=== PATIENT | female | born 1950 | race African-American/Black ===

== ENCOUNTER 2018-03-12 07:15 | Day surgery (SDC) | payer MEDICARE ==
[~2018-03-12] VITALS: Ht 162.6 cm; Wt 129.3 kg
[~2018-03-12 07:15] MED LIST: ADLT ASA LOW81 MG PO; ADVAIR HF1 IN; AMOXICILLIN500 M2 PO; ASP OR; AUGMENTIN500TAB PO; AZATHIOPRINE50 MG PO; BABY ASPIRIN81 MG OR; CALCIUM600 M1 OR; DIOVAN HCT OR; FUROSEMIDE40 MG PO; HYDRALAZINE25 MG PO; KLOR-CON 1010 MEQ OR; KLOR-CON 1010 MEQ PO; LASIX80 MG PO; LORTAB 5 OR; MEDDOSEPAK PO; MEDROL4 M1 OR; METOPROL TAR100 MG PO; METOPROLOL50 MG OR; METOPROLOL50 MG PO; OXYBUTYNIN5 MG PO; PREDNISONE10 MG PO; PREDNISONE20 MG OR; PREDNISONE5 MG PO; PRILOSEC20 MG PO; PRILOSEC20 MG/CAP PO; PROAIR HFA IN; PROTONIX40 M2 PO; ROBITUSSIN AC10 ML PO; SG ASA LOW81 M1 PO; SMZ-TMP DS1 TAB PO; TOPROL XL PO; VENTOLIN HFA IN; ZPAK PO; ZYRTEC-D AL1 PO; ZYRTEC-D ALG OR; ZYRTEC10 MG PO
[2018-03-12 10:24] VITALS: BP 139/67
== END 2018-03-12 10:30 | disposition home or self-care (01) ==
LOC: ENDO 07:15
PROVIDERS: ATTEND Internal Medicine Gastroenterology
PROC: 0DBN8ZX Excision of Sigmoid Colon, Via Natural or Artificial Opening Endoscopic, Diagnostic (ICD-10-PCS; principal; 2018-03-12)
PROC: 0DBL8ZX Excision of Transverse Colon, Via Natural or Artificial Opening Endoscopic, Diagnostic (ICD-10-PCS; 2018-03-12)
DX: Z12.11 Encounter for screening for malignant neoplasm of colon (principal); D12.5 Benign neoplasm of sigmoid colon; D12.3 Benign neoplasm of transverse colon; K64.4 Residual hemorrhoidal skin tags; K57.30 Diverticulosis of large intestine without perforation or abscess without bleeding; K64.8 Other hemorrhoids; I10 Essential (primary) hypertension; I48.91 Unspecified atrial fibrillation; Z86.010 Personal history of colon polyps

== ENCOUNTER → 2019-01-01 | Outpatient (REF) | payer MEDICARE ==
[2019-01-01 09:32] LABS: ALBUMIN 3.8 g/dL (3.2-5.0); ALKALINE PHOSPHATASE 117 u/l (38-126); ANION GAP 14 (6-22 (CALC)); BILIRUBIN, TOTAL 0.7 mg/dL (0.0-1.4); BUN 13 mg/dL (8-23); BUN/CREATININE RATIO 18 (12-20 (CALC)); CARBON DIOXIDE 25 mmol/l (22-30); CHLORIDE 106 mmol/l (95-108); CREATININE 0.7 mg/dL (0.5-1.0); GFR > 60 ML/MIN (>=60 (CALC)); GFR FOR AFR.AMER. > 60 ML/MIN (>=60 (CALC)); POTASSIUM 3.8 mmol/l (3.5-5.1); SGOT/AST 15 u/l (9-36); SODIUM 141 mmol/l (137-146); TOTAL PROTEIN 6.9 g/dL (6.3-8.2)
== END | disposition home or self-care (01) ==
LOC: LAB 08:41
PROVIDERS: ATTEND Internal Medicine Geriatric Medicine
DX: I10 Essential (primary) hypertension (principal)

== ENCOUNTER 2020-10-16 12:18 | Inpatient (IN) | payer MEDICARE ==
[2020-10-16] VITALS (14 sets, daily range): BP systolic 157–207; BP diastolic 67–83
[~2020-10-16] VITALS: Ht 160 cm; Wt 142.0 kg
[~2020-10-16 12:18] MED LIST changes: +HYDRALAZINE10 MG PO
--- NOTE | 2020-10-16 12:18 | NUR ---
PT TO ROOM 9 VIA WHEELCHAIR FOR BEDSIDE TRIAGE
--- NOTE | 2020-10-16 12:20 | NUR ---
PT REPORTS BEING AT HER PCP OFFICE TODAY AND SUDDENLY BECAME SOB. WAS GIVEN 3 NEB TX AT PCP OFFICE WITH MINIMAL RELIEF.
[2020-10-16] MEDS ORDERED: IPRATROPIUM BR0.02 % IN (12:48)
[2020-10-16] MEDS ORDERED: ALBUTEROL SUL0.083 % IN (12:48)
[2020-10-16] MEDS ORDERED: PROAIR HFA IN (12:50)
[2020-10-16] MEDS ORDERED: MULTIVITAMIN PO (12:50)
[2020-10-16 13:02] LABS: HEMATOCRIT 37.9 % (37.0-47.0); HEMOGLOBIN 11.4 g/dl (12.0-16.0); IMMATURE GRANULOCYTES 0.8 % (0.0-5.0); MEAN CORPUSCULAR HGB 28.3 pG CALC (26.0-32.0); MEAN CORPUSCULAR HGB CONC 30.1 g/dL CAL (32.0-36.0); NEUT# 8.06 thou/uL (2.00-7.15); RED BLOOD COUNT 4.03 mill/uL (4.20-5.60)
--- NOTE | 2020-10-16 13:33 | NUR ---
PT MEDICATED PER JAN ORDER. TOLERATED ADMINISTRATION WELL. ADVISED OF CONT CARDIAC AND BP MONITORING. VERBALIZED UNDERSTANDING. CALL LIGHT GIVEN. SISTER BEDSIDE.
[2020-10-16 13:58] LABS: ALBUMIN 3.8 g/dL (3.2-5.0); ALKALINE PHOSPHATASE 172 u/l (38-126); ANION GAP 15 (6-22 (CALC)); BILIRUBIN, TOTAL 0.7 mg/dL (0.0-1.4); BUN 15 mg/dL (8-23); BUN/CREATININE RATIO 23 (12-20 (CALC)); CARBON DIOXIDE 26 mmol/l (22-30); CHLORIDE 105 mmol/l (95-108); CREATININE 0.7 mg/dL (0.5-1.0); GFR > 60 ML/MIN (>=60 (CALC)); GFR FOR AFR.AMER. > 60 ML/MIN (>=60 (CALC)); POTASSIUM 3.6 mmol/l (3.5-5.1); SGOT/AST 20 u/l (9-36); SODIUM 142 mmol/l (137-146); TOTAL PROTEIN 7.3 g/dL (6.3-8.2)
[2020-10-16 14:00] LABS: ACT PARTIAL THROMBO TIME 23.6 SECONDS (20.0-32.5); PROTHROMBIN TIME 9.7 SECONDS (9.0-12.5)
--- NOTE | 2020-10-16 14:03 | NUR ---
PT MEDICATED WITH HYDRALAZINE IVP BY LAMAR RATLIFF. PT REPORTS NO NEEDS. CALL LIGHT WITHIN REACH.
--- NOTE | 2020-10-16 15:00 | NUR ---
PT RESTING ON STRETCHER. RESP EVEN AND UNLABORED. SKIN WARM AND DRY. VERBALIZES NO NEEDS AT THIS TIME. CALL LIGHT WITHIN REACH. SAS SQL DEVELOPER IN PLACE
[2020-10-16 15:43] LABS: URINE BILIRUBIN - DIPSTICK NEGATIVE (NEGATIVE); URINE BLOOD DIPSTICK SMALL (NEGATIVE); URINE COLOR YELLOW; URINE GLUCOSE - DIPSTICK NEGATIVE (NEGATIVE); URINE KETONE NEGATIVE (NEGATIVE); URINE LEUK ESTERASE NEGATIVE (NEGATIVE); URINE NITRITE - DIPSTICK NEGATIVE (Negative); URINE PROTEIN - DIPSTICK 100 mg/dL (NEG-TRACE); URINE SPECIFIC GRAVITY 1.025; URINE UROBILINOGEN - DIPSTICK 0.2 E.U./dL (0.2)
[2020-10-16 15:54] LABS: URINE BACTERIA RARE hpf; URINE SQUAMOUS EPITHELIAL CELL FEW EPI/hpf (0-FEW); URINE WBC 0-2 WBC/hpf (0-5)
--- NOTE | 2020-10-16 16:00 | NUR ---
PT RESTING ON STRETCHER WITY EYES OPEN. RESP EVEN AND UNLABORED. SKIN WARM AND DRY. ELECTRICIAN DECK IN PLACE, SPO2 @ 96%. CALL LIGHT WITHIN REACH.
--- NOTE | 2020-10-16 16:33 | NUR ---
PT TO BR VIA WC.
--- NOTE | 2020-10-16 16:40 | NUR ---
NEW IV ACCESS OBTAINED D/T ORDER FOR CTA CHEST. PT TOLERATED WELL.
--- NOTE | 2020-10-16 17:31 | NUR ---
FOOD TRAY PROVIDED.
--- NOTE | 2020-10-16 17:36 | NUR ---
PT ASSISTED TO BR VIA WC.
--- NOTE | 2020-10-16 18:30 | NUR ---
PATIENT REMAINS HYPERTENSIVE. DR MEDINA NOTIFIED.
--- NOTE | 2020-10-16 19:00 | NUR ---
REPORT GIVEN TO EVY AWAD
--- NOTE | 2020-10-16 19:18 | NUR ---
IN ROOM INTRODUCED SELF TO PT. ORDERED HOLD CARDENE GTT AT THIS TIME BP 183/62.
--- NOTE | 2020-10-16 19:53 | NUR ---
PT. BP 239/100 CARDENE GTT STARTED AT 5 MG /HR OR 50 ML HR.
--- NOTE | 2020-10-16 20:02 | NUR ---
Admission Note Report Given to: PRINCE RN Transported by: Wheelchair X Stretcher Transported with: X Nurse Transporter X Patent IV X O2 X Systems Trainer Location: X ICU [facility]
--- NOTE | 2020-10-16 20:17 | NUR ---
PT. TAKEN TO ICU VIA STRETCHER, NO C/O AT THIS TIME.
--- NOTE | 2020-10-16 20:30 | NUR ---
PATIENT ARRIVED FROM ER AT 2019 VIA STRECHER. PATIENT ALERT AND ORIENTED. RESP EVEN AND UNLABORED.IV INFUSING CARDENE 5MG/50ML HOUR ON ARRIVAL. ORIENTED TO BED, ROOM, AND CALL LIGHT. PLAN OF CARE DISCUSSED. PATIENT INFORMED TO CALL WITH ANY QUESTIONS OR CONCERNS. FALL AND SAFTEY PRECAUTIONS IN PLACE.
--- NOTE | 2020-10-16 21:30 | NUR ---
DR. MCNAMARA CALLED FOR TITRATION PARAMETER FOR THE CARDENE DRIP. NEW ORDERS FOR [employer] SBP 150 /DSP 90, STOP DRIP IF SBP 120 / DSP 70.
[2020-10-17] VITALS (38 sets, daily range): BP systolic 117–172; BP diastolic 53–74
--- NOTE | 2020-10-17 | NUR ---
PATIENT BP CONTIUNES TO BE ELEVATED. TITRIATING PER PROTOCOL. FALL AND SAFTEY PRECAUTIONS IN PLACE. NO S/S OF DISTRESS NOTED.
--- NOTE | 2020-10-17 01:56 | NUR ---
PATIENT RESTING WITH EYES CLOSED. FALL AND SAFTEY PRECAUTIONS IN PLACE. NO S/S OF DISTRESS NOTED.
--- NOTE | 2020-10-17 02:01 | NUR ---
PATIENT REQUESTING TO BE PLACED ON O2 DUE TO HISTORY OF SLEEP APNEA NAD WEARING CPAP AT HOME. PATIENT IS TOLERATING WELL.
--- NOTE | 2020-10-17 06:45 | NUR ---
REPORT RECEIVED FROM PRINCE RATLIFF. CARE ASSUMED.
--- NOTE | 2020-10-17 07:00 | NUR ---
PT RESTING IN BED WITH EYES CLOSED. PT AROUSES EASILY TO VERBAL STIMULI. PT IS ALERT AND ORIETNED X3. SHIFT ASSESSMENT COMPLETED AT THIS TIME. IV PATENT X2. PT ASSISTED UP TO BSC TO VOID THEN ASSISTED BACK TO BED. CALL LIGHT IN REACH. WILL CONTINUE TO MONTIOR.
--- NOTE | 2020-10-17 07:45 | NUR ---
PT SET UP FOR AM MEAL AT THIS TIME
--- NOTE | 2020-10-17 08:43 | NUR ---
DR MCNAMARA AND Darryn HOWELL AT BEDSIDE AT THIS TIME FOR EVALUATION AND PLAN OF CARE
[2020-10-17 08:46] LABS: HEMATOCRIT 33.8 % (37.0-47.0); HEMOGLOBIN 10.5 g/dl (12.0-16.0); IMMATURE GRANULOCYTES 0.7 % (0.0-5.0); MEAN CELL VOLUME 92.1 fL CALC (80.0-100.0); MEAN CORPUSCULAR HGB 28.6 pG CALC (26.0-32.0); MEAN CORPUSCULAR HGB CONC 31.1 g/dL CAL (32.0-36.0); NEUT# 14.3 thou/uL (2.00-7.15); RED BLOOD COUNT 3.67 mill/uL (4.20-5.60); RED CELL DISTRI WIDTH 15.6 % (11.5-15.5)
[2020-10-17 09:09] LABS: ALBUMIN 3.4 g/dL (3.2-5.0); ALKALINE PHOSPHATASE 136 u/l (38-126); ANION GAP 9 (6-22 (CALC)); BILIRUBIN, TOTAL 0.4 mg/dL (0.0-1.4); BUN 15 mg/dL (8-23); BUN/CREATININE RATIO 24 (12-20 (CALC)); CARBON DIOXIDE 26 mmol/l (22-30); CHLORIDE 110 mmol/l (95-108); CREATININE 0.6 mg/dL (0.5-1.0); GFR > 60 ML/MIN (>=60 (CALC)); GFR FOR AFR.AMER. > 60 ML/MIN (>=60 (CALC)); POTASSIUM 4.2 mmol/l (3.5-5.1); SGOT/AST 19 u/l (9-36); SODIUM 140 mmol/l (137-146); TOTAL PROTEIN 6.5 g/dL (6.3-8.2)
--- NOTE | 2020-10-17 10:40 | NUR ---
ASSISTED PT UP TO BSC TO VOID. PT STATES SHE WOULD LIKE TO WASHED UP. ASSISTED PT IN BATHING. OFFERED TO PT TO SIT UP IN CHAIR. PT DECLINED AND SAT UP ON SIDE OF BED. CALL LIGHT IN REACH. WILL CONTINUE TO MONITOR.
[2020-10-17] MEDS ORDERED: MEDDOSEPAK PO (11:36)
[2020-10-17] MEDS ORDERED: DOXYCYCL HYC100 MG PO (11:36)
--- NOTE | 2020-10-17 11:55 | NUR ---
PT SET UP FOR NOON MEAL AT THIS TIME. PT AWARE OF DISCHARGE.
--- NOTE | 2020-10-17 13:00 | NUR ---
DISCHARGE INSTRUCTIONS REVIEWED WITH PATIENT. IV X2 REMOVED. CATH TIP INTACT. PT TOLERATED WELL. PT VERBALIZED UNDERSTANDING OF DC INSTRUCTIONS.
--- NOTE | 2020-10-17 13:30 | NUR ---
Discharge instructions given. Patient verbalizes understanding of same. Discharged in stable condition via Wheelchair to Home with family. All belongings sent with pt.
== END 2020-10-17 13:30 | disposition home or self-care (01) | DRG 191 ==
LOC: ED 12:18 → ED-I 17:50 → ED 18:15 → ICU 18:16
PROVIDERS: Student in an Organized Health Care Education/Training Program; ADMIT Internal Medicine; ATTEND Internal Medicine
DX: J44.1 Chronic obstructive pulmonary disease with (acute) exacerbation (principal); I16.1 Hypertensive emergency; Z68.43 Body mass index [BMI] 50.0-59.9, adult; I10 Essential (primary) hypertension; R09.02 Hypoxemia; E66.01 Morbid (severe) obesity due to excess calories; T46.5X6A Underdosing of other antihypertensive drugs, initial encounter; I27.20 Pulmonary hypertension, unspecified; G47.33 Obstructive sleep apnea (adult) (pediatric); Z91.128 Patient's intentional underdosing of medication regimen for other reason; Z20.828 Contact with and (suspected) exposure to other viral communicable diseases
CPT/HCPCS: J1650; Q9967

== ENCOUNTER 2020-10-18 19:23 | Emergency (ER) | payer MEDICARE ==
[~2020-10-18] VITALS: Ht 160 cm; Wt 160.0 kg
[~2020-10-18 19:23] MED LIST changes: +ALBUTEROL SUL0.083 % IN; +DOXYCYCL HYC100 MG PO; +IPRATROPIUM BR0.02 % IN; +MULTIVITAMIN PO
[2020-10-18 20:35] VITALS: BP 176/75
== END 2020-10-18 20:55 | disposition home or self-care (01) ==
LOC: ED 19:23
DX: I10 Essential (primary) hypertension (principal); J18.9 Pneumonia, unspecified organism

== ENCOUNTER 2020-10-19 02:22 | Observation (INO) | payer MEDICARE ==
[2020-10-19] VITALS (7 sets, daily range): BP systolic 151–212; BP diastolic 63–85
[~2020-10-19] VITALS: Ht 160 cm; Wt 141.7 kg
--- NOTE | 2020-10-19 02:26 | NUR ---
PATIENT TO ROOM 13 VIA WHEELCHAIR. TRIAGE COMPLETED AT BEDSIDE.
[2020-10-19 03:02] LABS: IMMATURE GRANULOCYTES 0.9 % (0.0-5.0); MEAN CELL VOLUME 92.1 fL CALC (80.0-100.0); MEAN CORPUSCULAR HGB 28.9 pG CALC (26.0-32.0); MEAN CORPUSCULAR HGB CONC 31.4 g/dL CAL (32.0-36.0); NEUT# 11.02 thou/uL (2.00-7.15); RED BLOOD COUNT 3.8 mill/uL (4.20-5.60); RED CELL DISTRI WIDTH 15.5 % (11.5-15.5)
[2020-10-19 03:18] LABS: ALBUMIN 3.7 g/dL (3.2-5.0); ALKALINE PHOSPHATASE 143 u/l (38-126); AMYLASE 72 u/l (30-110); ANION GAP 10 (6-22 (CALC)); BUN 19 mg/dL (8-23); BUN/CREATININE RATIO 28 (12-20 (CALC)); CARBON DIOXIDE 26 mmol/l (22-30); CHLORIDE 108 mmol/l (95-108); CREATININE 0.7 mg/dL (0.5-1.0); GFR > 60 ML/MIN (>=60 (CALC)); GFR FOR AFR.AMER. > 60 ML/MIN (>=60 (CALC)); LIPASE 32 u/l (23-300); POTASSIUM 4.1 mmol/l (3.5-5.1); SGOT/AST 28 u/l (9-36); SODIUM 141 mmol/l (137-146); TOTAL PROTEIN 7.1 g/dL (6.3-8.2)
[2020-10-19 03:30] LABS: MYOGLOBIN 103 ng/mL (0 - 62)
--- NOTE | 2020-10-19 03:30 | NUR ---
PATIENT RESTING QUIETLY AT THIS TIME, NO C/O PAIN OR DISCOMFORT, NO S/S OF DISTRESS NOTED, RESPIRATIONS EVEN AND UNLABORED, REPORTS CHEST TIGHTNESS RESOLVED, FAMILY AT BEDSIDE.
[2020-10-19 03:31] LABS: BILIRUBIN, TOTAL 0.6 mg/dL (0.0-1.4)
--- NOTE | 2020-10-19 04:05 | NUR ---
FAMILY EXITS DEPARTMENT, PATIENT AWAITING DIAGNOSTIC RESULTS, NO C/O PAIN OR DISCOMFORT, RESTING QUIETLY.
--- NOTE | 2020-10-19 05:41 | NUR ---
PATIENT ABLETO AMBULATE INDEPENDENTYLY TO THE BATHRM TO PROVIDE A URINE SAMPLE. NO C/O PAIN OR DISCOMFORT, NO S/S OF IDSTRESS NOTED, AWAITING DIAGNOSTIC RESULTS.
[2020-10-19 06:03] LABS: URINE BILIRUBIN - DIPSTICK NEGATIVE (NEGATIVE); URINE BLOOD DIPSTICK NEGATIVE (NEGATIVE); URINE COLOR YELLOW; URINE GLUCOSE - DIPSTICK NEGATIVE (NEGATIVE); URINE KETONE NEGATIVE (NEGATIVE); URINE LEUK ESTERASE NEGATIVE (NEGATIVE); URINE NITRITE - DIPSTICK NEGATIVE (Negative); URINE PH 6.5 (4.5-8.0); URINE PROTEIN - DIPSTICK NEGATIVE (NEG-TRACE); URINE UROBILINOGEN - DIPSTICK 0.2 E.U./dL (0.2)
--- NOTE | 2020-10-19 06:41 | NUR ---
ATTEMPTED TO GIVE REPORT TO INPATIENT UNIT, NURSE UNAVAILABLE AT THIS TIME.
--- NOTE | 2020-10-19 06:51 | NUR ---
HAND OFF REPORT GIVEN TO MERRY
--- NOTE | 2020-10-19 07:00 | NUR ---
PT ADMITTED FOR CHEST AIN, DENIES PAIN AT THIS TIME AND NO APPARENT S/S OF DISTRESS, AWARE OF NEED FOR REPEAT TROPONIN. LUNGS CLEAR ADN SKIN WARM AND DRY, NO SOB OR DISTRESS, ASSESSMENT COMPLETED SEE IONTERVENTIONS, CALL WEBSTER WITHIN REACH
--- NOTE | 2020-10-19 07:49 | NUR ---
LAB AT BEDSIDE EARLIER FOR REPEAT TROPONIN, SET UP ASSIST PROVIDED FOR AM MEAL, CALL WEBSTER WITHIN REACH.
--- NOTE | 2020-10-19 07:50 | NUR ---
PT TRASNPORTED TO MED SURG VIA WHEELCHAIR, ALL BELONGINGS SENT WITH PT.
--- NOTE | 2020-10-19 08:15 | NUR ---
PT ARRIVED TO UNIT AT 0802 VIA WHEELCHAIR WITH ER STAFF; ALERT AND ORIENTED X 3. DENIES PAIN INCLUDING CHEST PAIN. RESPIRATIONS EVEN AND UNLABORED ON ROOM AIR. SITTING UP ON EDGE OF BED FOR ASSESSMENT; LUNGS ARE DIMINISHED; HEART RATE REGULAR; SINUS RHYTHM ON TELEMETRY; TRACE BLE EDEMA. #20G IV TO LAC APPEARS HEALTHY AND FLUSHES. ORIENTED TO ROOM AND CALL LIGHT SYSTEM. PLAN OF CARE DISCUSSED. PT ENCOURAGED TO VERBALIZE CONCERNS. STATES UNDERSTANDING. SAFETY MEASURES IN PLACE. CALL LIGHT WITHIN REACH.
--- NOTE | 2020-10-19 08:21 | NUR ---
DR. WINSLOW AND JANET TURPIN AT BEDSIDE FOR EVAL.
--- NOTE | 2020-10-19 10:40 | NUR ---
PT RESTING IN BED. RESPIRATIONS ARE EVEN AND UNLABORED ON RA. PT DENIES ANY CHEST PAIN AT THIS TIME. SAFETY PRECAUTIONS IN PLACE. WILL CONTINUE TO MONITOR.
--- NOTE | 2020-10-19 13:30 | NUR ---
PT BP IS ELIVATED. ANRP NOTIFIED NEW ORDERS OBTAINED AND TO BE CARRIED OUT.
--- NOTE | 2020-10-19 17:50 | NUR ---
PT RESTING IN BED, FREE FROM DISTRESS AT THIS TIME. SAFETY PRECAUTIONS IN PLACE. WILL CONTINUE TO MONITOR.
--- NOTE | 2020-10-19 19:05 | NUR ---
REPORT FROM HENRIETTA RATLIFF. ASSUME PT CARE AT THIS TIME.
--- NOTE | 2020-10-19 21:29 | NUR ---
PT MEDICATED ORDERED. NO APPARENT DISTRESS NOTED. PT STATES SHE WEARS CPAP MACHINE AT HOME AND REQUEST 02 TO SLEEP, PROVIDED AT THIS TIME. IV SITE APPEARS HEALTHY. BUDGET MANAGER IN PLACE. DISCUSSED POC. PT VERBALIZED UNDERSTANDING. NO CURRENT WANTS OR NEEDS. CALL LIGHT WITHIN REACH. WILL CONTINUE TO MONITOR.
--- NOTE | 2020-10-19 21:41 | NUR ---
PT REQUEST SOMETING FOR SLEEP. SMALL ORDER CUTTER PHYSICIAN NOTIFIED. ORDERS RECEIVED. WILL MEDICATE WHEN PROFILED.
[2020-10-20 00:24] VITALS: BP 176/66
--- NOTE | 2020-10-20 01:23 | NUR ---
PT RESTING IN BED WITH EYES CLOSED. NO APPARENT DISTRESS NOTED. RESPIRATIONS EVEN AND UNLABORED. EMBOSSING MACHINE OPERATOR IN PLACE. CALL LIGHT WITHIN REACH. WILL CONTINUE TO MONITOR.
[2020-10-20 03:30] VITALS: BP 143/64
[2020-10-20 05:02] LABS: HEMATOCRIT 33.7 % (37.0-47.0); HEMOGLOBIN 10.1 g/dl (12.0-16.0); MEAN CELL VOLUME 93.6 fL CALC (80.0-100.0); MEAN CORPUSCULAR HGB 28.1 pG CALC (26.0-32.0); RED BLOOD COUNT 3.6 mill/uL (4.20-5.60); RED CELL DISTRI WIDTH 15.2 % (11.5-15.5)
[2020-10-20 05:07] LABS: ANION GAP 8 (6-22 (CALC)); BUN 20 mg/dL (8-23); BUN/CREATININE RATIO 26 (12-20 (CALC)); CARBON DIOXIDE 28 mmol/l (22-30); CHLORIDE 107 mmol/l (95-108); CREATININE 0.8 mg/dL (0.5-1.0); GFR > 60 ML/MIN (>=60 (CALC)); GFR FOR AFR.AMER. > 60 ML/MIN (>=60 (CALC)); SODIUM 139 mmol/l (137-146)
--- NOTE | 2020-10-20 05:23 | NUR ---
PT RESTING IN BED WITH EYES CLOSED. NO APPARENT DISTRESS NOTED. RESPIRATIONS EVEN AND UNLABORED. FOOD COUNTER ATTENDANT IN PLACE. CALL LIGHT WITHIN REACH. WILL CONTINUE TO MONITOR.
--- NOTE | 2020-10-20 07:00 | NUR ---
REPORT RECEIVED FROM SADIE NUNO. PT RESTING IN BED. FREE FROM DISTRESS AT THIS TIME. SAFETY PRECAUTIONS IN PLACE. WILL CONTINUE TO MONTIOR.
--- NOTE | 2020-10-20 10:40 | NUR ---
PT RESTING IN BED. ALERT AND ORIENTED. RESPIRATIONS ARE LABORED ON O2 @ 2L VIA NC. LUNGS SOUND DIMINISHED. PEDAL PULSES ARE WEAK. PT DENIES ANY PAIN OR DISCOMFORT AT THIS TIME. SAFETY PRECAUTIONS IN PLACE. WILL CONTINUE TO MONITOR.
[2020-10-20 10:43] VITALS: BP 160/65
--- NOTE | 2020-10-20 13:25 | NUR ---
PT RESTING IN BED. NO S/S OF DISTRESS AT THIS TIME. SAFETY PRECAUTIONS IN PLACE. WILL CONTINUE TO MONITOR.
--- NOTE | 2020-10-20 13:40 | NUR ---
PT BP ANDRES MD MADE AWARE.
[2020-10-20 15:30] VITALS: BP 169/59
[2020-10-20 19:00] VITALS: BP 165/65
--- NOTE | 2020-10-20 19:08 | NUR ---
REPORT FROM HENRIETTA RATLIFF. ASSUME PT CARE.
--- NOTE | 2020-10-20 20:11 | NUR ---
PT NOTED RESTING IN BED WATCHING TV. NO APPARENT DISTRESS NOTED. 02 PRN AT BEDSIDE FOR SLEEP IN PLACE OF HOME CPAP. IV SITE APPEARS HEALTHY. HEEL SORTER IN PLACE. DISCUSSED POC. PT VERBALIZED UNDERSTANDING. PT REQUEST SLEEPING PILL, WILL NOTIFY PHYSICIAN FOR ORDERS. CALL LIGHT WITHIN REACH. WILL CONTINUE TO MONITOR.
--- NOTE | 2020-10-20 22:21 | NUR ---
SLEEPING PILL ADMINISTERED ORDERED. PT DENIES ANY PAIN OR DISCOMFORT. RESTING IN BED AT THIS TIME. NO APPARENT DISTRESS NOTED. 02 VIA NC 2L/M. NO CURRENT WANTS OR NEEDS. CALL LIGHT WITHIN REACH. WILL CONTINUE TO MONITOR.
[2020-10-21] VITALS: BP 166/59
--- NOTE | 2020-10-21 01:45 | NUR ---
PT RESTING IN BED WITH EYES CLOSED. NO APPARENT DISTRESS NOTED. RESPIRATIONS EVEN AND UNLABORED. INTAKE CLINICIAN IN PLACE. CALL LIGHT WITHIN REACH. WILL CONTINUE TO MONITOR.
--- NOTE | 2020-10-21 04:33 | NUR ---
PT RESTING IN BED WITH EYES CLOSED. NO APPARENT DISTRESS NOTED. RESPIRATIONS EVEN AND UNLABORED. MACHINE FILLER SERVICER IN PLACE. CALL LIGHT WITHIN REACH. WILL CONTINUE TO MONITOR.
[2020-10-21 04:55] VITALS: BP 177/83
--- NOTE | 2020-10-21 05:42 | NUR ---
FARM MACHINERY ERECTOR PHYSICIAN NOTIFIED OF PT CURRENT BP 184/74 HR 76. ORDERS RECEIVED AT THIS TIME. RN ON SHIFT TO ADMINISTER MEDICATION WHEN PROFILED.
[2020-10-21 07:34] VITALS: BP 158/58
--- NOTE | 2020-10-21 07:34 | NUR ---
REPORT RECEIVED FROM SADIE NUNO. PT SITTING UP ON EDGE OF BED; ALERT AND ORIENTED. DENIES PAIN, NAUSEA, AND SOB. RESPIRATIONS EVEN AND UNLABORED ON ROOM AIR. TELE ON. IV SITE APPEARS HEALTHY AND FLUSHES IN LAC. ACCU CHECK 86 AND VSS. LUNGS ARE CLEAR WITH DIMINISHED BASES; NO NOTED EDEMA. LEFT PUPIL SMALLER THAN RIGHT; HX OF CATARACT SX AND IS BASELINE FOR PT. POC REVIEWED. ENCOURAGED TO VERBALIZE CONCERNS. STATES UNDERSTANDING. SAFETY MEASURES IN PLACE. CALL LIGHT WITHIN REACH.
--- NOTE | 2020-10-21 08:59 | NUR ---
DR. WINSLOW AND JANET SMITH AT BEDSIDE.
[2020-10-21 09:44] VITALS: BP 158/58
[2020-10-21] MEDS ORDERED: LOSARTAN POTASS50 MG PO (09:44)
[2020-10-21] MEDS ORDERED: AMLODIPINE BESYL5 MG PO (09:44)
--- NOTE | 2020-10-21 10:23 | NUR ---
IV site discontinued, cath intact. No edema , no redness, voices no discomfort.
--- NOTE | 2020-10-21 10:37 | NUR ---
MEDS RECEIVED BY PHARMACY AND GIVEN TO PT. DRESSED AND SITTING UP ON EDGE OF BED.
--- NOTE | 2020-10-21 10:44 | NUR ---
Discharge instructions given. Patient verbalizes understanding of same. Discharged in stable condition via Wheelchair to Home with family. All belongings sent with pt.
== END 2020-10-21 10:42 | disposition home or self-care (01) ==
LOC: ED 02:22 → ED-I 06:00 → ED 06:32 → MS2 06:33
PROVIDERS: Emergency Medicine; Nurse Practitioner; ADMIT Internal Medicine; ATTEND Internal Medicine
DX: I16.1 Hypertensive emergency (principal); I10 Essential (primary) hypertension; T46.5X6A Underdosing of other antihypertensive drugs, initial encounter; F41.9 Anxiety disorder, unspecified; I27.20 Pulmonary hypertension, unspecified; J44.9 Chronic obstructive pulmonary disease, unspecified; I25.10 Atherosclerotic heart disease of native coronary artery without angina pectoris; K21.9 Gastro-esophageal reflux disease without esophagitis; G47.33 Obstructive sleep apnea (adult) (pediatric); E66.9 Obesity, unspecified; Z68.43 Body mass index [BMI] 50.0-59.9, adult; Z91.128 Patient's intentional underdosing of medication regimen for other reason; Z20.828 Contact with and (suspected) exposure to other viral communicable diseases
CPT/HCPCS: J2060

== ENCOUNTER 2020-11-30 12:18 | Observation (INO) | payer MEDICARE ==
[~2020-11-30] VITALS: Ht 160 cm; Wt 134.4 kg
[~2020-11-30 12:18] MED LIST changes: +AMLODIPINE BESYL5 MG PO; +LOSARTAN POTASS50 MG PO
[2020-11-30 13:03] LABS: HEMATOCRIT 35.5 % (37.0-47.0); HEMOGLOBIN 10.8 g/dl (12.0-16.0); MEAN CELL VOLUME 95.4 fL CALC (80.0-100.0); MEAN CORPUSCULAR HGB CONC 30.4 g/dL CAL (32.0-36.0); NEUT# 7.32 thou/uL (2.00-7.15); RED BLOOD COUNT 3.72 mill/uL (4.20-5.60)
[2020-11-30 13:17] LABS: ALKALINE PHOSPHATASE 122 u/l (38-126); ANION GAP 10 (6-22 (CALC)); BILIRUBIN, TOTAL 0.6 mg/dL (0.0-1.4); BUN 15 mg/dL (8-23); BUN/CREATININE RATIO 23 (12-20 (CALC)); CARBON DIOXIDE 26 mmol/l (22-30); CHLORIDE 107 mmol/l (95-108); CREATININE 0.7 mg/dL (0.5-1.0); GFR > 60 ML/MIN (>=60 (CALC)); GFR FOR AFR.AMER. > 60 ML/MIN (>=60 (CALC)); POTASSIUM 3.6 mmol/l (3.5-5.1); SGOT/AST 22 u/l (9-36); SODIUM 139 mmol/l (137-146); TOTAL PROTEIN 7.4 g/dL (6.3-8.2)
[2020-11-30 17:02] VITALS: BP 167/68
[2020-11-30 20:00] VITALS: BP 158/67
[2020-12-01] VITALS: BP 121/50
[2020-12-01 04:00] VITALS: BP 110/52
[2020-12-01 07:56] VITALS: BP 165/64
[2020-12-01 11:00] VITALS: BP 136/54
== END 2020-12-01 13:42 | disposition home or self-care (01) ==
LOC: ED 12:18 → ED-I 13:42 → ED 14:21 → ED-I 14:22 → MS2 16:12
PROVIDERS: Family Medicine; ADMIT Internal Medicine; ATTEND Internal Medicine
DX: R07.9 Chest pain, unspecified (principal); I10 Essential (primary) hypertension; J44.9 Chronic obstructive pulmonary disease, unspecified; I27.20 Pulmonary hypertension, unspecified; G47.33 Obstructive sleep apnea (adult) (pediatric); E66.01 Morbid (severe) obesity due to excess calories; I25.10 Atherosclerotic heart disease of native coronary artery without angina pectoris; K21.9 Gastro-esophageal reflux disease without esophagitis; Z87.891 Personal history of nicotine dependence; Z20.822 Contact with and (suspected) exposure to COVID-19

== ENCOUNTER 2022-10-11 15:17 | Emergency (ER) | payer MEDICARE ==
[~2022-10-11] VITALS: Ht 160 cm; Wt 132.0 kg
[2022-10-11] VITALS (12 sets, daily range): BP systolic 101–251; BP diastolic 38–94
[2022-10-11 16:09] LABS: URINE BILIRUBIN - DIPSTICK NEGATIVE (NEGATIVE); URINE BLOOD DIPSTICK NEGATIVE (NEGATIVE); URINE CLARITY SL CLOUDY; URINE GLUCOSE - DIPSTICK NEGATIVE (NEGATIVE); URINE KETONE TRACE mg/dL (NEGATIVE); URINE LEUK ESTERASE SMALL (Negative); URINE NITRITE - DIPSTICK NEGATIVE (Negative); URINE PROTEIN - DIPSTICK TRACE mg/dL (NEG-TRACE); URINE SPECIFIC GRAVITY 1.025
[2022-10-11 16:11] LABS: URINE COLOR DK. YELLOW
[2022-10-11 16:15] LABS: URINE BACTERIA MANY hpf; URINE SQUAMOUS EPITHELIAL CELL FEW EPI/hpf (0-FEW)
[2022-10-11] MEDS ORDERED: NITROFURANTN100 M2 PO (17:35)
== END 2022-10-11 18:15 | disposition home or self-care (01) ==
LOC: ED 15:17
PROVIDERS: Family Medicine
DX: N39.0 Urinary tract infection, site not specified (principal); I10 Essential (primary) hypertension

== ENCOUNTER 2023-03-12 07:26 | Day surgery (SDC) | payer MEDICARE ==
[~2023-03-12] VITALS: Ht 167.6 cm; Wt 275.0 kg
[~2023-03-12 07:26] MED LIST changes: +CLONIDINE0.1 MG PO; +NITROFURANTN100 M2 PO
[2023-03-12] MEDS ORDERED: DEXILANT30 MG PO (09:18)
[2023-03-12 09:25] VITALS: BP 137/55
== END 2023-03-12 09:25 | disposition home or self-care (01) ==
LOC: ENDO 07:26 → ORM 09:30
PROVIDERS: ATTEND Surgery
PROC: 0DBL8ZX Excision of Transverse Colon, Via Natural or Artificial Opening Endoscopic, Diagnostic (ICD-10-PCS; principal; 2023-03-12)
PROC: 0DB48ZX Excision of Esophagogastric Junction, Via Natural or Artificial Opening Endoscopic, Diagnostic (ICD-10-PCS; 2023-03-12)
PROC: 0DB78ZX Excision of Stomach, Pylorus, Via Natural or Artificial Opening Endoscopic, Diagnostic (ICD-10-PCS; 2023-03-12)
DX: D64.9 Anemia, unspecified (principal); D12.3 Benign neoplasm of transverse colon; K57.30 Diverticulosis of large intestine without perforation or abscess without bleeding; K64.8 Other hemorrhoids; K29.70 Gastritis, unspecified, without bleeding; K20.80 Other esophagitis without bleeding; K44.9 Diaphragmatic hernia without obstruction or gangrene; I10 Essential (primary) hypertension; J44.9 Chronic obstructive pulmonary disease, unspecified; Z86.010 Personal history of colon polyps